=== PATIENT | male | born 1995 | race Caucasian/White ===

== ENCOUNTER 2019-02-15 19:34 | Emergency (ER) | payer OTHER ==
[2019-02-15 19:40] VITALS: BP 137/94
--- NOTE | 2019-02-15 20:07 | EDPHY ---
H & P Time Seen by Provider: 02/15/19 19:47 HPI/ROS: CHIEF COMPLAINT: Right middle finger laceration HISTORY OF PRESENT ILLNESS: 23-year-old male presents with right middle finger laceration. He was at work and cut his finger on a broken ceramic toilet seat. Persistent bleeding for 15-20 minutes, now stopped. Pain is mild and increases with palpation. No numbness or weakness. No other injuries. Tetanus is up-to-date. ROS: No numbness, weakness, syncopal episode, other injury. Smoking Status: Heavy smoker Physical Exam: Alert and oriented, pleasant Extremities: Right middle finger-7 mm laceration at the finger tip, bleeding controlled Neuro: Motor and sensory intact Vascular: Capillary refill brisk distally. Constitutional: Initial Vital Signs Temperature (C) 36.7 C 02/15/19 19:38 Heart Rate 95 02/15/19 19:38 Respiratory Rate 16 02/15/19 19:38 Blood Pressure 137/94 H 02/15/19 19:38 O2 Sat (%) 93 02/15/19 19:38 O2 Delivery Mode Room Air Allergies/Adverse Reactions: No Known Allergies Allergy (Unverified 02/15/19 19:36) Home Medications: Medication Instructions Recorded NK [No Known Home Meds] 02/15/19 Medical Decision Making Procedures: Procedure: Laceration repair. The 7 mm laceration on the finger tip was anesthetized using lidocaine. The wound was irrigated, draped and explored to its base with a gloved finger. There were no deep structures involved. No foreign body palpable. The wound was repaired with 6 0 nylon. The wound repair was simple. Departure - Departure Disposition: Home, Routine, Self-Care Clinical Impression: Laceration Condition: Good Instructions: Finger Laceration (ED) Additional Instructions: Return in 10 days for suture removal. Ibuprofen 600 mg 3 times daily while the pain persists. Return for signs of infection, including redness, increasing pain or drainage.
== END 2019-02-15 20:18 | disposition home or self-care (01) ==
PROC: 0HQFXZZ Repair Right Hand Skin, External Approach (ICD-10-PCS; principal; 2019-02-15)
DX: S61.218A Laceration without foreign body of other finger without damage to nail, initial encounter (principal); W26.8XXA Contact with other sharp object(s), not elsewhere classified, initial encounter; Y99.0 Civilian activity done for income or pay